=== PATIENT | female | born 1975 | race Caucasian/White ===

== ENCOUNTER 2020-10-12 07:16 | Emergency (ER) | payer MEDICAID ==
[2020-10-12] MEDS ORDERED: Sodium Chloride 0.9% 10 ML Syringe FLUSH PRN (08:17)
[2020-10-12] MEDS ORDERED: Ondansetron 4 MG/2 ML SDV IVPUSH ONE (08:26)
[2020-10-12] MEDS ORDERED: Ketorolac 30 MG/ML SDV IVPUSH ONE (08:26)
[2020-10-12] MEDS ORDERED: Iopamidol 755 Mg/ML 100 ML Bottle IV ONE (08:37)
[2020-10-12] MEDS: Sodium Chloride 0.9% 1,000 ML IV SCH ×2 (09:09→09:13)
[2020-10-12 09:32] VITALS: BP 129/70; PULSE 73
--- NOTE | 2020-10-12 09:53 | EDM.PDOC ---
ED HPI GENERAL MEDICAL PROBLEM - General Chief Complaint: Abdominal Pain Stated Complaint: severe stomach ache Time Seen by Provider: 10/12/20 07:35 Source of Information: Reports: Patient, Family History Limitations: Reports: No Limitations - History of Present Illness INITIAL COMMENTS - FREE TEXT/NARRATIVE: Patient presented to the ED because of abdominal pain bilateral adnexal area and suprapubic area whic started 3 days ago. The pain is sharp,8/10 at worse. There is associated nausea but no vomiting, no diarrhea or constipation. She mentioned that her urine is somewhat cloudy and turbid. Abdominal Pain Score (Numeric/FACES): 8 - Related Data Allergies Allergy/AdvReac Type Severity Reaction Status Date / Time codeine Allergy Hives Verified 06/08/15 17:10 Home Meds: Home Meds Naproxen 500 mg PO BID #15 tablet 10/12/20 [Rx] Sulfamethoxazole/Trimethoprim [Bactrim Ds Tablet] 1 each PO BID #10 tablet 10/12/20 [Rx] Past Medical History Genitourinary History: Reports: UTI, Recurrent Social & Family History - Family History Family Medical History: No Pertinent Family History - Tobacco Use Tobacco Use Status *Q: Current Every Day Tobacco User Years of Tobacco use: 20 Packs/Tins Daily: 0.2 - Caffeine Use Caffeine Use: Reports: Coffee, Soda - Recreational Drug Use Recreational Drug Use: No ED ROS GENERAL - Review of Systems Review Of Systems: See Below Constitutional: Reports: No Symptoms HEENT: Reports: No Symptoms Respiratory: Reports: No Symptoms Cardiovascular: Reports: No Symptoms Endocrine: Reports: No Symptoms GI/Abdominal: Reports: Abdominal Pain : Reports: No Symptoms Musculoskeletal: Reports: No Symptoms Skin: Reports: No Symptoms Neurological: Reports: No Symptoms Psychiatric: Reports: No Symptoms ED EXAM, GI/ABD - Physical Exam Exam: See Below Exam Limited By: No Limitations General Appearance: Alert, No Apparent Distress Ears: Normal External Exam, Normal Canal Nose: Normal Inspection, Normal Mucosa, No Blood Throat/Mouth: Normal Inspection Head: Atraumatic, Normocephalic Neck: Normal Inspection, Supple, Non-Tender, Full Range of Motion Respiratory/Chest: No Respiratory Distress, Lungs Clear, Normal Breath Sounds Cardiovascular: Normal Peripheral Pulses, Regular Rate, Rhythm, No Edema, No Gallop, No JVD, No Murmur, No Rub GI/Abdominal Exam: Normal Bowel Sounds, Soft, Non-Tender, No Organomegaly Back Exam: Normal Inspection, Full Range of Motion Extremities: Normal Inspection, Normal Range of Motion, Non-Tender Course - Vital Signs Last Recorded V/S: Last Vital Signs Temp 36.6 C 10/12/20 07:30 Pulse 73 10/12/20 09:04 Resp 16 10/12/20 09:04 BP 129/70 10/12/20 09:04 Pulse Ox 100 10/12/20 09:04 Labs/CT abd/pelvis was discussed with patient NS 1 L bolus Toradol 30 mg IV x1 - Orders/Labs/Meds Orders: Active Orders 24 hr Category Date Time Status Abdomen Pelvis w Cont [CT] Stat Exams 10/12/20 08:25 Taken Saline Lock Insert [OM.PC] Routine Oth 10/12/20 08:17 Ordered Labs: Laboratory Tests 10/12/20 10/12/20 10/12/20 Range/Units 07:49 08:35 08:35 WBC 8.8 (3.0-10.3) x10-3/uL RBC 4.73 (3.60-5.20) x10(6)uL Hgb 13.7 (11.4-15.5) g/dL Hct 42.8 (34.2-48.2) % MCV 90.6 (76.7-100.5) fL MCH 28.9 (23.9-33.9) pg MCHC 31.9 (31.9-34.8) g/dL RDW 13.6 (12.3-16.5) % Plt Count 384 (151-488) x10(3)uL MPV 6.5 L (7.1-12.4) fL Neut % (Auto) 55.9 (30.8-76.2) % Lymph % (Auto) 31.4 (18.4-52.1) % [place] % (Auto) 10.3 (4.4-15.7) % Eos % (Auto) 1.8 (0.6-8.1) % Baso % (Auto) 0.6 (0.2-1.5) % Neut # (Auto) 4.9 (1.5-6.3) x10-3/uL Lymph # (Auto) 2.8 (1.0-4.4) x10-3/uL C[place] # (Auto) 0.9 (0.3-1.0) x10-3/uL Eos # (Auto) 0.2 (0.0-0.8) x10-3/uL Baso # (Auto) 0.1 (0.0-0.1) x10-3/uL Sodium 138 (135-145) mmol/L Potassium 4.4 (3.5-5.3) mmol/L Chloride 101 (100-110) mmol/L Carbon Dioxide 27 (21-32) mmol/L BUN 17 (7-18) mg/dL Creatinine 0.9 (0.55-1.02) mg/dL Est Cr Clr Drug Dosing 64.61 mL/min Estimated GFR (MDRD) > 60 (>60) BUN/Creatinine Ratio 18.9 (9-20) Glucose 93 (80-116) mg/dL Calcium 8.0 L (8.6-10.2) mg/dL Total Bilirubin 0.4 (0.1-1.3) mg/dL AST 31 H (5-25) IU/L ALT 40 H (12-36) U/L Alkaline Phosphatase 89 (56-112) IU/L Total Protein 6.8 (6.0-8.0) g/dL Albumin 3.4 L (3.5-5.2) g/dL Globulin 3.4 g/dL Albumin/Globulin Ratio 1.0 Amylase 91 (25-115) U/L Lipase (73-393) U/L Urine Color Yellow (YELLOW) Urine Appearance Slightly cloudy (CLEAR) Urine pH 5.0 (5.0-6.5) Ur Specific [place] 1.025 (1.010-1.025) Urine Protein Negative (NEGATIVE) mg/dL Urine Glucose (UA) Normal (NORMAL) mg/dL Urine Ketones Negative (NEGATIVE) mg/dL Urine Occult Blood Negative (NEGATIVE) Urine Nitrite Negative (NEGATIVE) Urine Bilirubin Negative (NEGATIVE) Urine Urobilinogen Normal (NEGATIVE) mg/dL Ur Leukocyte Esterase Negative (NEGATIVE) Urine WBC 0-5 (0-5) Ur Squamous Epith Cells Moderate H (NS,R,O) Urine Bacteria Rare H (NS) Urine Mucus Moderate H (NS) 10/12/20 Range/Units 08:35 WBC (3.0-10.3) x10-3/uL RBC (3.60-5.20) x10(6)uL Hgb (11.4-15.5) g/dL Hct (34.2-48.2) % MCV (76.7-100.5) fL MCH (23.9-33.9) pg MCHC (31.9-34.8) g/dL RDW (12.3-16.5) % Plt Count (151-488) x10(3)uL MPV (7.1-12.4) fL Neut % (Auto) (30.8-76.2) % Lymph % (Auto) (18.4-52.1) % [place] % (Auto) (4.4-15.7) % Eos % (Auto) (0.6-8.1) % Baso % (Auto) (0.2-1.5) % Neut # (Auto) (1.5-6.3) x10-3/uL Lymph # (Auto) (1.0-4.4) x10-3/uL [place] # (Auto) (0.3-1.0) x10-3/uL Eos # (Auto) (0.0-0.8) x10-3/uL Baso # (Auto) (0.0-0.1) x10-3/uL Sodium (135-145) mmol/L Potassium (3.5-5.3) mmol/L Chloride (100-110) mmol/L Carbon Dioxide (21-32) mmol/L BUN (7-18) mg/dL Creatinine (0.55-1.02) mg/dL Est Cr Clr Drug Dosing mL/min Estimated GFR (MDRD) (>60) BUN/Creatinine Ratio (9-20) Glucose (80-116) mg/dL Calcium (8.6-10.2) mg/dL Total Bilirubin (0.1-1.3) mg/dL AST (5-25) IU/L ALT (12-36) U/L Alkaline Phosphatase (56-112) IU/L Total Protein (6.0-8.0) g/dL Albumin (3.5-5.2) g/dL Globulin g/dL Albumin/Globulin Ratio Amylase (25-115) U/L Lipase 111 (73-393) U/L Urine Color (YELLOW) Urine Appearance (CLEAR) Urine pH (5.0-6.5) Ur Specific [place] (1.010-1.025) Urine Protein (NEGATIVE) mg/dL Urine Glucose (UA) (NORMAL) mg/dL Urine Ketones (NEGATIVE) mg/dL Urine Occult Blood (NEGATIVE) Urine Nitrite (NEGATIVE) Urine Bilirubin (NEGATIVE) Urine Urobilinogen (NEGATIVE) mg/dL Ur Leukocyte Esterase (NEGATIVE) Urine WBC (0-5) Ur Squamous Epith Cells (NS,R,O) Urine Bacteria (NS) Urine Mucus (NS) Meds: Medications Discontinued Medications Generic Name Dose Route Start Last Admin Trade Name Freq PRN Reason Stop Dose Admin Sodium Chloride 1,000 mls @ 999 mls/hr 10/12/20 08:30 10/12/20 09:09 Normal Saline IV Infused ASDIRECTED PRIYA Infusion Iopamidol 100 ml 10/12/20 08:37 10/12/20 09:05 [id number] (76%) IV 10/12/20 08:38 100 ml . DIRECTED ONE Administration Ketorolac Tromethamine 30 mg 10/12/20 08:26 10/12/20 08:53 Toradol IVPUSH 10/12/20 08:27 30 mg ONETIME ONE Administration Ondansetron HCl 4 mg 10/12/20 08:26 10/12/20 08:52 Zofran IVPUSH 10/12/20 08:27 4 mg ONETIME ONE Administration Sodium Chloride 10 ml 10/12/20 08:17 10/12/20 09:09 Saline Flush FLUSH 10 ml ASDIRECTED PRN Administration Keep Vein Open Departure - Departure Time of Disposition: 09:50 Disposition: Home, Self-Care 01 Condition: Good Clinical Impression: Cystitis - Discharge Information Prescriptions: Sulfamethoxazole/Trimethoprim [Bactrim Ds Tablet] 1 each PO BID #10 tablet Naproxen 500 mg PO BID #15 tablet Instructions: Interstitial Cystitis Referrals: PCP,None [Primary Care Provider] - Forms: ED Department Discharge Additional Instructions: Please read discharge instructions on cystitis Increase oral fluids Take naproxen 500 mg twice daily for 1 week Bactrim DS twice daily for 5 days Follow up as needed Sepsis Event Note (ED) - Evaluation Sepsis Screening Result: No Definite Risk - Focused Exam Vital Signs: Vital Signs Pulse Resp BP Pulse Ox 10/12/20 09:04 73 16 129/70 100 - My Orders Last 24 Hours: My Active Orders 10/12/20 08:17 Saline Lock Insert [OM.PC] Routine 10/12/20 08:25 Abdomen Pelvis w Cont [CT] Stat - Assessment/Plan Last 24 Hours: My Active Orders 10/12/20 08:17 Saline Lock Insert [OM.PC] Routine 10/12/20 08:25 Abdomen Pelvis w Cont [CT] Stat
== END 2020-10-12 10:03 | disposition home or self-care (01) ==
LOC: FB.ED 07:16
DX: N30.90 Cystitis, unspecified without hematuria (principal); Z88.5 Allergy status to narcotic agent; Z72.0 Tobacco use
CPT/HCPCS: 36415; 74177; 80053; 81001; 82150; 83690; 85025; 96374; 96375; 99283; 99284-25; J1885; J2405; J7030; Q9967

== ENCOUNTER 2022-12-12 23:39 | Emergency (ER) | payer MEDICAID ==
[2022-12-13] MEDS ORDERED: LORazepam 1 MG Tab PO ONE (00:50)
[2022-12-13 01:32] VITALS: BP 125/78; PULSE 102
== END 2022-12-13 01:19 | disposition home or self-care (01) ==
LOC: FB.ED 23:39
DX: F41.9 Anxiety disorder, unspecified (principal); Z88.5 Allergy status to narcotic agent; Z79.899 Other long term (current) drug therapy; Z02.89 Encounter for other administrative examinations; Y04.8XXA Assault by other bodily force, initial encounter
CPT/HCPCS: 80307; 99283; A9270-GY

== ENCOUNTER 2024-12-28 19:10 | Emergency (ER) | payer MEDICAID ==
[2024-12-28] MEDS ORDERED: traMADol 50 MG Tab PO ONE (19:11)
[2024-12-28] MEDS: Ketorolac 30 MG/ML SDV IM ONE (19:51)
[2024-12-28 20:50] VITALS: BP 126/94; PULSE 78
== END 2024-12-28 20:34 | disposition home or self-care (01) ==
LOC: FB.ED 19:10
DX: R10.32 Left lower quadrant pain (principal); I10 Essential (primary) hypertension; E11.9 Type 2 diabetes mellitus without complications; F17.200 Nicotine dependence, unspecified, uncomplicated; Z88.5 Allergy status to narcotic agent; Z79.899 Other long term (current) drug therapy; Z86.16 Personal history of COVID-19; Z90.49 Acquired absence of other specified parts of digestive tract
CPT/HCPCS: 96372; 99283; A9270; J1885

== ENCOUNTER 2025-02-07 19:01 | Emergency (ER) | payer MEDICAID ==
[2025-02-07] MEDS: hydrOXYzine HCl 50 MG/ML SDV IM ONE (21:20)
[2025-02-07] MEDS: HYDROmorphone 2 MG/ML SDV IM ONE (21:20)
[2025-02-07 22:53] VITALS: BP 128/86; PULSE 73
== END 2025-02-07 22:05 | disposition home or self-care (01) ==
LOC: FB.ED 19:01
DX: F41.9 Anxiety disorder, unspecified (principal); E78.00 Pure hypercholesterolemia, unspecified; I10 Essential (primary) hypertension; E11.9 Type 2 diabetes mellitus without complications; Z86.16 Personal history of COVID-19; Z88.5 Allergy status to narcotic agent; Z79.899 Other long term (current) drug therapy; Z79.85 Long-term (current) use of injectable non-insulin antidiabetic drugs
CPT/HCPCS: 96372; 99283; J1171; J3410